=== PATIENT | female | born 1955 | race African-American/Black ===

== ENCOUNTER 2018-12-23 07:44 | Emergency (ER) | payer BC, OTHER ==
[~2018-12-23] VITALS: Ht 149.9 cm; Wt 73.0 kg
[~2018-12-23 07:44] MED LIST: PHEN100C4 PO
[2018-12-23 08:01] VITALS: BP 151/75
== END 2018-12-23 09:33 | disposition home or self-care (01) ==
LOC: ER 07:55
DX: H10.023 Other mucopurulent conjunctivitis, bilateral (principal); G40.909 Epilepsy, unspecified, not intractable, without status epilepticus
CPT/HCPCS: 99283